=== PATIENT | female | born 1970 | race Caucasian/White ===

== ENCOUNTER 2017-08-28 13:55 | Outpatient (RCR) | payer BC ==
[2016-02-17 14:25] VITALS: Wt 120.4 kg
[2017-08-26 08:17] VITALS: BP 128/91
[~2017-08-28 13:55] MED LIST: AZIT-18 PO; CEFD300C35 PO; CELE200C7 PO; CYAN100T25 PO; DIA5; FOLI-68 PO; HYDR2TAB42; IBU600 PO; LISI-350 PO; LISI-355 PO; PAR20 PO; PER PO; POTA-23 PO; RIV10 PO; RIVA20TA PO; TRA50 PO; TRAM-420 PO
[2017-08-28 14:07] VITALS: BP 130/77
--- NOTE | 2017-08-28 18:47 | ONCOLOGY FOLLOW UP NOTE ---
EVENT DATE: August 28, 2017 DIAGNOSES 1. Bilateral pulmonary embolism. 2. Positive antiphospholipid antibodies. 3. Congestive heart failure. 4. Hypertension. CHIEF COMPLAINT The patient is here today for followup of her bilateral pulmonary embolism and hypercoagulable state. HEMATOLOGY HISTORY The patient is a 46-year-old female who presented recently with left shoulder stabbing pain which was followed by shortness of breath. The patient was treated for pneumonia, but without improvement, and her breathing got worse for another two days. She started to swell up with volume overload. She came to the emergency room and CT scan showed bilateral pulmonary embolus. She was also treated with diuretic for congestive heart failure and patient started anticoagulation with Xarelto. She was using Aredia IV, which was not stopped because it contains only progesterone. The patient is here today for consultation for further evaluation and management. She had a thrombophilia workup which included prothrombin gene mutation, which came back negative, factor V Leiden mutation which came back negative. Anticardiolipin antibody was normal at 2, but anticardiolipin IgM was high at 55. Beta-2 glycoprotein 1 antibody IgM came back high at 66. Homocysteine level was normal at 8. Antithrombin III, protein S, protein C total and activities were normal. Lupus anticoagulant was negative. 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 The patient is here today for followup of her bilateral pulmonary embolism and hypercoagulable state. She is doing really very good. Her breathing is very good now. Her repeat CT of chest did not show any evidence of pulmonary emboli , which was done April 2016. Patient showed persistently elevated antiphospholipid antibodies consistent with antiphospholipid antibody syndrome. HISTORY OF PRESENT ILLNESS Patient is here today for follow up of her bilateral pulmonary embolus with hypercoagulable state. She is complaining of generalized musculoskeletal pain due to her fibromyalgia. She is sometimes weak, tired and fatigued, but other than that she is stable. She has some pain in the back of her legs due to excessive movement lately, but denies any swelling, warmth or redness, or significant pain in that area. PAST MEDICAL HISTORY 1. Prior pulmonary embolism. 2. Congestive have failure. 3. Hypertension. PAST SURGICAL HISTORY Cholecystectomy. FAMILY HISTORY Maternal aunt and maternal grandmother both had breast cancer. Sister with DVT , but her workup for thrombophilia came back negative. Brother had DVT after surgery. SOCIAL HISTORY The patient is with two biological and two stepchildren. 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 She quit smoking after one pack a day for ten years. She drinks beer once a month and denies any use of illicit drugs. CURRENT MEDICATIONS 1. Lisinopril/hydrochlorothiazide. 2. Cefdinir. 3. Celecoxib. 4. K-Chlor. 5. Xarelto 20 mg daily. 6. Tramadol p.r.n. for pain. 7. Xarelto 20 mg daily. ALLERGIES No known drug allergies. REVIEW OF SYSTEMS CONSTITUTIONAL: No appetite or weight change. No fever, chills or sweating. No recent infection. HEENT: Ears: No tinnitus or hearing problem. Nose: No nasal discharge or epistaxis. Throat: No sore throat or mouth ulcers. Eyes: No diplopia or visual changes. RESPIRATORY: No shortness of breath. No cough, expectoration or hemoptysis. CARDIOVASCULAR: No chest pain, orthopnea, or paroxysmal nocturnal dyspnea (PND) . No edema. No palpitations. GASTROINTESTINAL: No nausea or vomiting. No diarrhea or constipation. No change in bowel movements. No heartburn or swallowing difficulties. No abdominal pain. No jaundice. No hematemesis, melena or rectal bleeding. GENITOURINARY: No hematuria or dysuria. MUSCULOSKELETAL: She has generalized musculoskeletal pain due to fibromyalgia. NEUROLOGICAL: The patient has some neuropathy in her left hand. HEMATOLOGIC/LYMPHATIC: No bleeding or easy bruising. She is weak, tired and fatigued occasionally. No enlarged lymph nodes. SKIN: No skin rash or lumps. PSYCHIATRIC: No anxiety or depression. PHYSICAL EXAMINATION GENERAL: Looks stable. Well-developed, well-nourished, and in no acute distress. VITAL SIGNS: Blood pressure 130/77, pulse 90 per minute, respirations 16 per minute, temperature 98.1, pulse ox 91% on room air. HEENT: Head: Atraumatic. No sinus tenderness to palpation. Eyes: No icterus or conjunctivitis. Mouth and throat: No oral thrush or mucositis. NECK: Supple. No cervical or supraclavicular lymphadenopathy. LUNGS: Clear to auscultation and percussion bilaterally. HEART: Regular rate and rhythm. No gallops, murmurs, clicks or rubs. ABDOMEN: Soft and lax. No tenderness. No hepatosplenomegaly. No masses. EXTREMITIES: No cyanosis, clubbing or edema. LYMPHATICS: No peripheral lymphadenopathy. NEUROLOGICAL: Conscious, alert and oriented times three. No focal motor or sensory deficits. PSYCHIATRIC: Mood and affect appear normal. SKIN: No skin rash, bruise or purpuric eruption. DIAGNOSTIC DATA Homocysteine level is normal at 6. ASSESSMENT 1. Bilateral pulmonary embolism. Thrombophilia workup came back positive for antiphospholipid antibody syndrome with persistently high antiphospholipid antibodies, after repeat testing in three months. 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 Patient is doing fine currently and with her diagnosis of bilateral pulmonary embolism and antiphospholipid antibody syndrome, she will be maintained on lifelong anticoagulation, and she is currently on Xarelto 20 mg daily. I am planning to continue the same treatment. 2. Antiphospholipid antibody syndrome with persistently high multiple antiphospholipid antibodies. Because of her high recurrence rate in about one- third of cases, patient will be maintained on lifelong anticoagulation with Xarelto, given that she has bilateral pulmonary embolisms. 3. 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 She is currently on folic acid 1 mg, vitamin B complex one tablet twice daily. Her homocysteine level currently is normal at 6. I am planning to continue the vitamin supplements. I am planning to see her again in six months with repeat fasting homocysteine level at that time. 4. History of congestive heart failure. 5. Hypertension. PLAN 1. Continue Xarelto 20 mg daily lifelong. 2. Continue folic acid 1 mg daily. 3. Continue B complex one tablet twice daily. 4. Patient to return in six months with fasting homocysteine level. 5. Patient to contact us for any new concerns or complaints. [id number]
== END 2017-09-30 14:23 | disposition home or self-care (01) ==
LOC: ONC 13:55
PROVIDERS: ATTEND Nurse Practitioner Family
DX: I26.99 Other pulmonary embolism without acute cor pulmonale (principal); D68.61 Antiphospholipid syndrome; E72.12 Methylenetetrahydrofolate reductase deficiency; I50.9 Heart failure, unspecified; I10 Essential (primary) hypertension; Z87.891 Personal history of nicotine dependence; R53.1 Weakness; R53.83 Other fatigue
CPT/HCPCS: 36415; 83090; 99212